=== PATIENT | female | born 1990 ===

== ENCOUNTER → 2018-03-19 | Outpatient (REF) | LOC: WSPT 13:07 | DX: Z02.1 Encounter for pre-employment examination (principal) ==

== ENCOUNTER → 2018-05-21 | Outpatient (CLI) | payer OTHER ==
[2018-05-21 19:02] LABS: BILIRUBIN,TOTAL 0.3 mg/dL (0.0-1.0); CALCIUM 9.5 mg/dL (8.4-10.2); CREATININE, serum 0.79 mg/dL (0.52-1.25); POTASSIUM 4.4 mmol/L (3.4-5.0)
[2018-05-21 19:10] LABS: BASO % 0.5 % (0.0-2.0); EOS # 0.1 (0.0-0.7); EOS % 1.4 % (0-4.0); GRAN # 3.7 (1.4-6.5); GRAN % 56.3 % (42.2-75.2); HEMATOCRIT 43.9 % (37.0-47.0); HEMOGLOBIN 14.3 g/dl (12.5-16.0); LYMPH # 2.4 (1.2-3.4); MEAN CELL VOLUME 87 fl (80.0-100.0); MEAN CORPUSCULAR HEMOGLOBIN 28 pg (27.0-31.0); MEAN CORPUSCULAR HGB CONC 33 g/dl (33.0-37.0); MEAN PLATELET VOLUME 11.2 fl (7.4-10.4); MONO # 0.4 (0.1-0.6); MONO % 5.5 % (1.7-9.3); PLATELET COUNT 230 K/mm3 (130-400); RED BLOOD COUNT 5.05 M/mm3 (4.10-5.30); REDCELL DISTRIBUTION WIDTH-CV 13.2 % (11.5-14.5)
[2018-05-21 19:31] LABS: THYROID STIMULATING HORMONE 0.944 uIU/mL (0.465-4.680)
== END ==
LOC: ZCOL.LAB 16:25
PROVIDERS: Family Medicine
DX: F41.9 Anxiety disorder, unspecified (principal); G47.9 Sleep disorder, unspecified; E55.9 Vitamin D deficiency, unspecified; Z79.899 Other long term (current) drug therapy